=== PATIENT | female | born 1985 | race Caucasian/White ===

== ENCOUNTER → 2018-09-03 14:11 | Outpatient (CLI) | payer OTHER, SELFPAY ==
[2018-09-03 16:19] LABS: Alanine Aminotransferase 14 IU/L (9-52); Albumin Globulin Ratio 1.4 (1.0-2.8); Alkaline Phosphatase 74 U/L (38-126); Amylase 70 U/L (30-110); Aspartate Aminotransferase 15 IU/L (14-36); Bilirubin Total 0.3 mg/dL (0.2-1.3); Blood Urea Nitrogen 7 mg/dL (7-17); Calcium 9.4 mg/dL (8.4-10.2); Carbon Dioxide 26 mmol/L (22-32); Chloride 104 mmol/L (98-107); Estimated Glomerular Filt Rate > 60.0 mL/min (>60); Globulin 2.9 g/dL (1.7-4.1); Glucose 98 mg/dL (70-100); HEMOLYSIS < 15 (0-50); Lipase 149 U/L (23-300); Potassium 3.9 mmol/L (3.4-5.1); Sodium 139 mmol/L (137-145); Total Protein 6.9 g/dL (6.3-8.2)
== END ==
PROVIDERS: PCP Internal Medicine; Visit Provider Internal Medicine
DX: K58.9 Irritable bowel syndrome, unspecified (principal); R10.9 Unspecified abdominal pain; I10 Essential (primary) hypertension
CPT/HCPCS: 36415; 80053; 82150; 83690

== ENCOUNTER → 2018-09-12 08:18 | Outpatient (CLI) | payer OTHER, SELFPAY | PROVIDERS: PCP Internal Medicine; Visit Provider Physician Assistant | DX: N30.01 Acute cystitis with hematuria (principal) | CPT/HCPCS: 87077; 87086; 87186 ==

== ENCOUNTER → 2019-12-09 13:02 | Outpatient (CLI) | payer OTHER, SELFPAY ==
[2019-12-10 06:47] LABS: COVID19 Sendout Not Detected (Not Detect)
== END ==
PROVIDERS: PCP Internal Medicine; Visit Provider Physician Assistant
DX: Z01.812 Encounter for preprocedural laboratory examination (principal)
CPT/HCPCS: 87635

== ENCOUNTER 2019-12-12 09:05 | Day surgery (SDC) | payer OTHER, SELFPAY ==
[2019-12-11 15:14] VITALS: BMI 47.5
[2019-12-12] VITALS (13 sets, daily range): BP systolic 138–166; BP diastolic 83–104; PULSE 30–135; RESP 17–98; TEMP 36.1–36.9; O2SAT 92–98; BMI 47.5
[2019-12-12] MEDS: LACTATED RINGERS 1,000 ML 42 ML IV ×2 (09:29→10:59)
--- NOTE | 2019-12-12 09:41 | PM.PREOP ---
Pre-operative Note COVID-19 COVID-19 status: Negative Result date/Date tested (Pos, Neg/Pending): 12/09/19 Interval Note History & Physical reviewed/Exam performed by Physician: Yes Changes to H&P: No
--- NOTE | 2019-12-12 09:41 | PM.HP.1 ---
History of Present Illness History of Present Illness Date Patient Seen: 12/12/19 Time Patient Seen: 09:42 Chief complaint: T POSS A Narrative: 33-year-old female with a diagnosis of chronic tonsillitis and tonsil stones, throat pain and halitosis, persistent despite medical therapy, presents for tonsillectomy and possible adenoidectomy. Following discussion of the material risks benefits complications and alternatives, she elects to proceed. Patient History Medical History Acne vulgaris (Chronic 12/14/15) Body mass index (BMI) of 39.0 to 39.9 in adult (Chronic 06/13/16) Chronic tonsillitis (Acute) Generalized anxiety disorder (Chronic 06/13/16) Hearing loss (Acute) Irritable bowel syndrome (Chronic 01/04/16) Major depression (Chronic) Major depression in complete remission (Chronic 11/02/10) Migraine headache (Chronic 11/02/10) Tonsil stone (Acute) Surgical History History of third molar tooth extraction S/P cholecystectomy (Inactive ~01/2015) Family & Social History Family History Father Sleep apnea Mother Schizophrenia Sleep apnea Mental health problem Social History: household members none Tobacco & Substance use: Smoking Status Never smoker alcohol intake current alcohol intake frequency a few times a month Substance Use Type does not use Meds Home Medications and Allergies Home Medications Medication Instructions Recorded Confirmed Type naratriptan 2.5 mg tablet 2.5 mg PO .COMPLEX PRN #12 tab 11/13/17 08/05/19 Rx cholestyramine-aspartame 4 gram 4 gram PO BID #60 each 09/05/18 08/05/19 Rx oral powder for susp in a packet omeprazole 40 mg capsule,delayed See Rx Instructions .ROUTE 02/06/19 08/05/19 Rx release .COMPLEX #90 capsule bupropion HCl 150 mg 24 hr tablet, 150 mg PO QAM #30 tab 08/05/19 08/05/19 Rx extended release clonazepam 1 mg tablet 1 mg PO HS PRN #30 tab 08/05/19 08/05/19 Rx triamterene 37.5 1 tab PO QDAY #90 tab 09/26/19 12/11/19 Rx mg-hydrochlorothiazide 25 mg tablet desogestrel 0.15 mg-ethinyl See Rx Instructions .ROUTE 12/10/19 Rx estradiol 0.03 mg tablet .COMPLEX #28 tablet Allergies Allergy/AdvReac Type Severity Reaction Status Date / Time Fish Containing Products AdvReac Mild Headache,na Verified 08/05/19 11:47 usea Review of Systems Review of Systems Narrative: Throat irritation, pain, recurrent tonsil stones, halitosis, some snoring ROS: Yes All systems reviewed with the patient and are negative except as otherwise documented Exam Vital Signs (past 8 hours): - 12/12/19 09:30 Temperature 98.4 F Pulse Rate 105 H Respiratory Rate 17 Blood Pressure 154/91 H Pulse Oximetry 98 Oxygen Delivery Method Room Air Narrative Exam Narrative: Well-developed, obese female. 2+ tonsils. Heart regular rate and rhythm without murmur, lungs clear to auscultation bilaterally Assessment & Plan Assessment & Plan narrative: Assessment: Chronic tonsillitis, tonsil stones, throat pain, halitosis Plan: Following discussion of the material risks benefits complications and alternatives, the patient elected to proceed with tonsillectomy, possible adenoide[place] as [place] [facility] [place] [facility].
--- NOTE | 2019-12-12 09:44 | PM.OP.1 ---
Operative Date/Time/Diagnoses Date of procedure: 12/12/19 Time of procedure: 10:43 Pre-op diagnosis: Chronic tonsillitis, tonsil stones, throat pain, halitosis Post-op diagnosis: same Procedure & Clinicians Procedure: Tonsillectomy Same procedure as scheduled: Yes Indications: 33-year-old female with the above diagnoses incompletely managed with medical therapy presents for the above procedure. Following discussion of the material risks benefits complications and alternatives, she elected to proceed. Surgeon: Nicolas Mccabe Click Yes if Unassisted: Yes Anesthesia Type: General and Local Operative Notes Findings: Intact palate single uvula 2-3+ tonsils cryptic with stones, no adenoid tissue Closure Type: not applicable Specimen(s): none sent Estimated Blood Loss (mL): 10 Procedure in detail: Following identification and confirmation of consent the patient was brought to the operating room suite and placed in the supine position. General endotracheal anesthesia was administered. A head wrap, shoulder roll, and mouth gag were placed and a red rubber catheter was inserted through the nostril and out the mouth to retract the soft palate. There was no significant adenoid tissue. The left tonsil was retracted medially and suction electrocautery on a setting of 30 was used to dissect the tonsil in a subcapsular plane, followed by hemostasis with the same. This process was repeated on the right side with identical findings. The tonsillar fossae were superficially infiltrated bilaterally with a 1:1 mixture of 1% lidocaine 1 100,000 epinephrine and 0.25% Marcaine 1 to [id number] epinephrine. Mouth gag and rubber catheter were removed and the patient was extubated in the operating room and taken to the recovery room in stable condition without known complication. Complications: none Post-operative Condition: stable Disposition: same day surgery Plan for aftercare: DC home, alternate Tylenol and Advil every 3 hours, oxycodone for breakthrough pain, prescription given today.
--- NOTE | 2019-12-12 10:27 | SUR.OPER ---
Supine on padded OR bed, head on pillow, arm padded and tucked at side, legs uncrossed, safety belt at thigh, tape over blanket over lower legs .
[2019-12-12] MEDS: BUPIVACAINE 0.25% W/ EPI 30 ML VIAL INJ (10:30)
[2019-12-12] MEDS: LIDOCAINE 1% W/EPI 20 ML INJ (10:31)
[2019-12-12] MEDS: fentaNYL 100 MCG/2 ML INJ IV ×4 (10:56→11:47)
--- NOTE | 2019-12-12 11:59 | SUR.PHASEI ---
Dr. Guerrier aware of HR 113, patient may discharge per MD.
[2019-12-12] MEDS: OXYCODONE IR 5 MG TABLET PO (12:22)
== END 2019-12-12 12:40 | disposition home or self-care (01) ==
PROVIDERS: PCP Internal Medicine; Visit Provider Otolaryngology
PROC: (CPT 42826; principal; 2019-12-12 10:45)
DX: J35.01 Chronic tonsillitis (principal); J35.8 Other chronic diseases of tonsils and adenoids; R19.6 Halitosis; K21.9 Gastro-esophageal reflux disease without esophagitis; I10 Essential (primary) hypertension; F32.9 Major depressive disorder, single episode, unspecified; F41.9 Anxiety disorder, unspecified
CPT/HCPCS: 42826; J0330; J1100; J2250; J2405; J2704; J3010

== ENCOUNTER 2019-12-25 23:06 | Emergency (ER) | payer OTHER, SELFPAY ==
[2019-12-25 23:09] VITALS: BP 131/91; PULSE 117; RESP 20; TEMP 36.7; O2SAT 97; BMI 45.7
--- NOTE | 2019-12-25 23:49 | PC.NURSE ---
When brought to room, pt stated bleeding had slowed. Dr Bell to bedside for eval.
--- NOTE | 2019-12-25 23:50 | ED_ITS ---
HPI - GI Bleed General Chief complaint: GI Bleed Stated complaint: still bleeding from tonsillectomy 2 wks ago Time Seen by Provider: 12/25/19 23:50 Source: patient Mode of arrival: Ambulatory Limitations: no limitations History of Present Illness HPI Narrative: The patient underwent tonsillectomy 2 weeks ago. After going to sleep tonight she awoke with bleeding from her mouth. She spit out a substantial amount of blood. There was initially o'clock, the bright red blood. After arrival here, the bleeding has almost ceased. She has no tonsil pain, headache, no weakness or dizziness. She denies recent illness. She has had no headache, fever or cough. She has no bleeding issues. Related Data Previous Rx's Medication Instructions Recorded naratriptan 2.5 mg tablet 2.5 mg PO .COMPLEX PRN #12 tab 11/13/17 cholestyramine-aspartame 4 gram 4 gram PO BID #60 each 09/05/18 oral powder for susp in a packet omeprazole 40 mg capsule,delayed See Rx Instructions .ROUTE 02/06/19 release .COMPLEX #90 capsule bupropion HCl 150 mg 24 hr tablet, 150 mg PO QAM #30 tab 08/05/19 extended release clonazepam 1 mg tablet 1 mg PO HS PRN #30 tab 08/05/19 triamterene 37.5 1 tab PO QDAY #90 tab 09/26/19 mg-hydrochlorothiazide 25 mg tablet desogestrel 0.15 mg-ethinyl See Rx Instructions .ROUTE 12/10/19 estradiol 0.03 mg tablet .COMPLEX #28 tablet Allergies Allergy/AdvReac Type Severity Reaction Status Date / Time Fish Containing Products AdvReac Mild Headache,na Verified 08/05/19 11:47 usea Review of Systems Review of Systems ROS Unobtainable: All systems reviewed & are unremarkable except as noted in HPI and below Constitutional Constitutional: Denies chills, Denies fever(s) and Denies weakness ENT Comments: Tonsil bleeding is noted HPI. Cardiovascular Cardiovascular: Denies chest pain, Denies lightheadedness and Reports dyspnea Respiratory Respiratory: Reports cough and Reports dyspnea Gastrointestinal Gastrointestinal: Denies abdominal pain and Reports nausea Neurologic Neurologic: Denies weakness Patient History Medical History (Updated 12/26/19 @ 00:06 by Darrian Bell MD) Acne vulgaris (Chronic 12/14/15) Body mass index (BMI) of 39.0 to 39.9 in adult (Chronic 06/13/16) Chronic tonsillitis (Acute) Generalized anxiety disorder (Chronic 06/13/16) Hearing loss (Acute) Irritable bowel syndrome (Chronic 01/04/16) Major depression (Chronic) Major depression in complete remission (Chronic 11/02/10) Migraine headache (Chronic 11/02/10) Tonsil stone (Acute) Surgical History (Updated 12/25/19 @ 23:52 by Darrian Bell MD) History of third molar tooth extraction S/P cholecystectomy (Inactive ~01/2015) Status post tonsillectomy (Acute) Family History Father Sleep apnea Mother Schizophrenia Sleep apnea Mental health problem Social History household members: none Smoking Status: Never smoker alcohol intake: current Smoking Status: Never smoker alcohol intake frequency: a few times a month Substance Use Type: does not use Exam Initial Vital Signs Initial Vital Signs: Vital Signs Temperature 98.0 F 12/25/19 23:09 Pulse Rate 117 H 12/25/19 23:09 Respiratory Rate 20 12/25/19 23:09 Blood Pressure 131/91 H 12/25/19 23:09 Pulse Oximetry 97 12/25/19 23:09 Const General: cooperative and well developed Nutritional Appearance: well nourished [facility] Head: normocephalic and atraumatic Throat: other (There is a small clot in the left tonsillar fossa, no active bleeding. ) Neck Neck: No anterior neck swelling and No lymphadenopathy Resp Auscultation: clear to auscultation bilaterally Cardio Rate: regular rate Rhythm: regular rhythm Heart Sounds: no click, no gallops, no murmurs and no rubs Pulses: normal peripheral pulses Course Course Course Narrative: I was able suction majority of the clot from the left tonsillar fossa. There is no active bleeding. The patient feels well, she is advised follow-up with her ENT doctor. Vital Signs Vital signs: Vital Signs - 8 hr 12/25/19 23:09 Temperature 98.0 F Pulse Rate 117 H Respiratory Rate 20 Blood Pressure 131/91 H Pulse Oximetry 97 Discharge Plan Departure Patient Disposition: Home Clinical Impression: Haemorrhage, tonsil, postoperative Instructions: Tonsillectomy-Adult Activity Restrictions/Additional Instructions: Bleeding after tonsillectomy is not uncommon. Your bleeding is stable, your healing well. There is a small clot left in there. I would recommend saltwater gargles. Contact her ENT specialist, Dr. Jha, follow-up. Return here as needed. Prescriptions: No Action cholestyramine-aspartame 4 gram powder in packet 4 gram PO BID Qty: 60 RF: 5 omeprazole 40 mg capsule,delayed release(DR/EC) See Rx Instructions .ROUTE .COMPLEX Qty: 90 RF: 1 triamterene-hydrochlorothiazid 37.5-25 mg tablet 1 tab PO QDAY Qty: 90 RF: 3 desogestrel-ethinyl estradiol [Enskyce] 0.15-0.03 mg tablet See Rx Instructions .ROUTE .COMPLEX Qty: 28 RF: 12 bupropion HCl 150 mg tablet extended release 24 hr 150 mg PO QAM Qty: 30 RF: 6 clonazepam 1 mg tablet 1 mg PO HS PRN (Reason: insomnia) Qty: 30 RF: 0 naratriptan 2.5 mg tablet 2.5 mg PO .COMPLEX PRN (Reason: migraine headache) Qty: 12 RF: 11 Referrals: Nicolas Mccabe MD [Physician] - Honorio Nicolas MD [Primary Care Provider] -
--- NOTE | 2019-12-25 23:51 | PC.NURSE ---
Pt had a tonsillectomy 2 wks ago and reports that she woke up with a mouthful of blood. Since arriving to the ER the bleeding has stopped. MD assisted with suction and stated that the bleeding has stopped and pt is safe to go home. Pt reports no dizziness, syncope, n/v, or issues with her airway. Speaking clearly.
[2019-12-26 00:01] VITALS: BP 122/83; PULSE 103; RESP 20; O2SAT 96
== END 2019-12-26 00:10 | disposition home or self-care (01) ==
PROVIDERS: Emergency Provider Emergency Medicine; PCP Internal Medicine
DX: Z98.890 Other specified postprocedural states (principal); Z90.89 Acquired absence of other organs; J35.8 Other chronic diseases of tonsils and adenoids
CPT/HCPCS: 99281

== ENCOUNTER → 2020-12-08 16:11 | Outpatient (CLI) | payer OTHER, SELFPAY ==
[2020-12-08 17:20] LABS: Alanine Aminotransferase 12 IU/L (<35); Albumin 3.9 g/dL (3.5-5.0); Albumin Globulin Ratio 1.3 (1.0-2.8); Alkaline Phosphatase 64 U/L (38-126); Aspartate Aminotransferase 18 IU/L (14-36); BUN Creatinine Ratio 18.8 (6-22); Bilirubin Total 0.2 mg/dL (0.2-1.3); Blood Urea Nitrogen 13 mg/dL (7-17); Calcium 9.2 mg/dL (8.4-10.2); Carbon Dioxide 24 mmol/L (22-32); Chloride 105 mmol/L (98-107); Estimated Glomerular Filt Rate > 60.0 mL/min (>60); Globulin 2.9 g/dL (1.7-4.1); Glucose 118 mg/dL (70-100); HEMOLYSIS < 15 (0-50); Potassium 3.7 mmol/L (3.4-5.1); Sodium 136 mmol/L (137-145); Total Protein 6.8 g/dL (6.3-8.2)
[2020-12-08 17:51] LABS: TSH w/ Reflex to FT4 1.15 uIU/mL (0.47-4.68)
== END ==
PROVIDERS: PCP Internal Medicine; Referring Provider Internal Medicine; Visit Provider Internal Medicine
DX: F33.0 Major depressive disorder, recurrent, mild (principal); F41.1 Generalized anxiety disorder; G43.909 Migraine, unspecified, not intractable, without status migrainosus
CPT/HCPCS: 36415; 80053; 84443

== ENCOUNTER → 2021-02-09 14:17 | Outpatient (CLI) | payer OTHER, SELFPAY | PROVIDERS: PCP Internal Medicine; Referring Provider Nurse Practitioner Family; Visit Provider Nurse Practitioner Family | DX: N39.0 Urinary tract infection, site not specified (principal); R35.0 Frequency of micturition | CPT/HCPCS: 87077; 87086; 87186; 87210 ==

== ENCOUNTER → 2021-02-17 16:06 | Outpatient (CLI) | payer OTHER, SELFPAY ==
--- NOTE | 2021-02-17 | DI.MRI.S_ITS ---
PROCEDURE: MR BRAIN (IAC) WWO CON INDICATIONS: SENSORINEURAL HEARING LOSS TECHNIQUE: Noncontrast sagittal T1 spin echo, axial FLAIR, axial gradient echo, axial diffusion and ADC through the brain. Axial thin-slice 3D CISS, coronal TruFISP, axial T1 spin echo with fat saturation through the internal auditory canals. After the administration of contrast, thin slice axial and coronal T1 spin echo with fat saturation through the internal auditory canals, and axial T1 spin echo with fat saturation through the brain. COMPARISON: None. FINDINGS: Image quality: Excellent. Cerebellopontine angles: No cerebellopontine angle masses. Inner ear structures appear normally formed. No suspicious enhancement in the internal auditory canal or along the course of the 7th cranial nerve. CSF spaces: Ventricles are normal in size and shape. No extra-axial fluid collections. Basal cisterns are patent. Brain: No intracranial bleeds or mass effects. Rizzo-white matter interface is intact. No abnormal intracranial enhancement. Diffusion weighted images demonstrate no acute ischemic insults. Brainstem appears normal. Normal intravascular flow voids are present. Skull and face: Calvarial marrow signal is normal. Orbits appear normal. Sinuses: Sinuses and mastoids are clear. IMPRESSION: No significant abnormality is seen to explain the patient's presenting symptoms. Specifically, no masses or abnormal enhancement are seen within the cerebellopontine angle cisterns or within the internal auditory canals. Dictated by: Benji Salas M.D. on 02/17/2021 at 16:59 Approved by: Benji Salas M.D. on 02/17/2021 at 17:01
== END ==
PROVIDERS: PCP Internal Medicine; Referring Provider Otolaryngology; Visit Provider Otolaryngology
DX: H90.41 Sensorineural hearing loss, unilateral, right ear, with unrestricted hearing on the contralateral side (principal)
CPT/HCPCS: 70553; A9579

== ENCOUNTER → 2021-09-22 09:08 | Outpatient (CLI) | payer OTHER, SELFPAY | PROVIDERS: PCP Internal Medicine; Visit Provider Nurse Practitioner Family | DX: N39.0 Urinary tract infection, site not specified (principal) | CPT/HCPCS: 87086 ==

== ENCOUNTER → 2022-01-17 16:33 | Outpatient (CLI) | payer OTHER, SELFPAY | PROVIDERS: PCP Internal Medicine; Visit Provider Nurse Practitioner Family | DX: R30.0 Dysuria (principal); N89.8 Other specified noninflammatory disorders of vagina | CPT/HCPCS: 87077; 87086; 87186; 87210 ==

== ENCOUNTER → 2022-02-03 16:49 | Outpatient (CLI) | payer OTHER, SELFPAY | PROVIDERS: PCP Internal Medicine; Referring Provider Nurse Practitioner Family; Visit Provider Nurse Practitioner Family | DX: N39.0 Urinary tract infection, site not specified (principal); N89.8 Other specified noninflammatory disorders of vagina | CPT/HCPCS: 87086; 87210 ==

== ENCOUNTER → 2023-07-20 13:49 | Outpatient (CLI) | payer OTHER, SELFPAY | PROVIDERS: PCP Internal Medicine; Visit Provider Nurse Practitioner Family | DX: R30.0 Dysuria (principal); N89.8 Other specified noninflammatory disorders of vagina | CPT/HCPCS: 87086; 87210 ==

== ENCOUNTER → 2023-07-25 12:49 | Outpatient (CLI) | payer OTHER, SELFPAY | PROVIDERS: PCP Internal Medicine; Visit Provider Student in an Organized Health Care Education/Training Program | DX: N94.9 Unspecified condition associated with female genital organs and menstrual cycle (principal) | CPT/HCPCS: 87086; 87210 ==

== ENCOUNTER → 2023-08-15 10:10 | Outpatient (CLI) | payer OTHER, SELFPAY ==
[2023-08-15 11:04] LABS: Add Manual Diff / Slide Review NO; Basophils Absolute Auto 0 /uL (0-100); Basophils Percent Auto 0.5 % (0-2); Eosinophils Absolute Auto 0 /uL (0-450); Eosinophils Percent Auto 0.6 % (2-4); Hematocrit 41.8 % (36-46); Lymphocytes Absolute Auto 2200 /uL (1100-4500); Lymphocytes Percent Auto 27.9 % (25-40); Mean Corpuscular HGB Conc 33.4 % (30-36); Mean Corpuscular Hemoglobin 29.1 PG (26-34); Mean Corpuscular Volume 86.9 fL (80-100); Monocytes Absolute Auto 500 /uL (0-900); Monocytes Percent Auto 5.6 % (3-14); Neutrophils Absolute Auto 5300 /uL (1500-7000); Neutrophils Percent Auto 65.4 % (50-75); Platelet Count 355 X10^3/uL (150-400); Red Blood Cell Count 4.81 X10^6/uL (4.0-5.2); Red Cell Distribution Width 14.2 % (11.6-14.8); White Blood Cell Count 8.1 X10^3/uL (4.5-11.0)
[2023-08-15 12:44] LABS: Alanine Aminotransferase 16 IU/L (<35); Albumin 3.9 g/dL (3.5-5.0); Albumin Globulin Ratio 1.3 (1.0-2.8); Alkaline Phosphatase 75 U/L (38-126); Aspartate Aminotransferase 20 IU/L (14-36); BUN Creatinine Ratio 12.5 (6-22); Bilirubin Total 0.4 mg/dL (0.2-1.3); Blood Urea Nitrogen 9 mg/dL (7-17); Calcium 8.9 mg/dL (8.4-10.2); Carbon Dioxide 23 mmol/L (22-32); Chloride 108 mmol/L (98-107); Estimated Glomerular Filt Rate > 60 mL/min (>60); Glucose 83 mg/dL (70-100); HEMOLYSIS < 15 (0-50); Lipase 109 U/L (23-300); Potassium 4.7 mmol/L (3.4-5.1); Sodium 138 mmol/L (137-145); Total Protein 6.9 g/dL (6.3-8.2)
== END ==
PROVIDERS: PCP Internal Medicine; Referring Provider Internal Medicine; Visit Provider Internal Medicine
DX: R10.2 Pelvic and perineal pain (principal); R10.9 Unspecified abdominal pain
CPT/HCPCS: 36415; 80053; 83690; 85025

== ENCOUNTER → 2023-08-22 11:27 | Outpatient (CLI) | payer OTHER, SELFPAY ==
--- NOTE | 2023-08-22 11:29 | DI.CT.S_ITS ---
PROCEDURE: CT ABDOMEN PELVIS W CON INDICATIONS: pelvic pain TECHNIQUE: After the administration of intravenous contrast, axial sections acquired from the lung bases to the pubic symphysis. Coronal and sagittal reformats were performed. For radiation dose reduction, the following was used: automated exposure control, adjustment of mA and/or kV according to patient size. COMPARISON: None. FINDINGS: Image quality: Diagnostic. Lower Chest: No significant findings. ABDOMEN: Liver: No solid mass. Gallbladder: Surgically absent Biliary ducts: No biliary dilation. Pancreas: No ductal dilation. Spleen: Size is within normal limits. Adrenal Glands: No adrenal nodules. Kidneys and Ureters: No hydronephrosis. No solid mass. No complex renal cystic lesion which requires follow up. Stomach and Bowel: Normal colonic caliber, without significant wall thickening. Normal appendix. Peritoneum: No abnormal intraperitoneal fluid. No free air. Ventral Wall: There is a fat-containing umbilical hernia without acute inflammation. Abdominal Nodes: No retroperitoneal or mesenteric adenopathy by size criteria. Vessels: Aorta and inferior vena cava are normal in size. PELVIS: Pelvic Organs: Unremarkable. Bladder: No bladder wall thickening, accounting for underdistention. Pelvic Nodes: No enlarged lymph nodes. Miscellaneous: No inguinal hernias are seen. Bones: No aggressive osseous abnormality. Visualized osseous structures appear intact without acute fracture or focal destructive lesion. No acute compression fractures of the imaged spine. IMPRESSION: CT abdomen and pelvis without acute abnormalities. Status post cholecystectomy. Normal appendix. No suspicious mass or adenopathy. If there is still clinical concern for pelvic pathology. Further evaluation with pelvic ultrasound can be considered. Dictated by: Tunde Bautista M.D. on 08/22/2023 at 14:40 Approved by: Tunde Bautista M.D. on 08/22/2023 at 14:48
== END ==
PROVIDERS: PCP Internal Medicine; Referring Provider Internal Medicine; Visit Provider Internal Medicine
DX: K42.9 Umbilical hernia without obstruction or gangrene (principal); R10.2 Pelvic and perineal pain; R10.9 Unspecified abdominal pain; Z90.49 Acquired absence of other specified parts of digestive tract
CPT/HCPCS: 74177; Q9967

== ENCOUNTER → 2023-09-19 11:26 | Outpatient (CLI) | payer OTHER, SELFPAY | PROVIDERS: PCP Internal Medicine; Visit Provider Obstetrics & Gynecology | DX: R10.2 Pelvic and perineal pain (principal) | CPT/HCPCS: 87491; 87563; 87591 ==

== ENCOUNTER 2024-05-29 11:55 | Emergency (ER) | payer OTHER, SELFPAY ==
[2024-05-29] VITALS (9 sets, daily range): BP systolic 111–174; BP diastolic 65–109; PULSE 84–97; RESP 17–20; TEMP 36.6; O2SAT 96–98; BMI 54.1
--- NOTE | 2024-05-29 12:20 | EKG_ITS ---
[address] [address] Test Date: 2024-05-29 Pat Name: Masha Tolliver Department: Room: Gender: Female Patient Care: PEPE : 1985 Requested By: Order Number: [id number] Reading MD: Tito Mccullough Measurements Intervals [place] Rate: 89 P: 27 NH: 136 QRS: 12 QRSD: 86 T: 24 QT: 388 QTc: 472 Interpretive Statements Normal sinus rhythm Electronically Signed On 06-04-2024 20:07:49 PDT by Tito Mccullough
--- NOTE | 2024-05-29 14:07 | DI.RAD.S_ITS ---
PROCEDURE: XR CHEST 1V INDICATIONS: chest pain TECHNIQUE: One view of the chest was acquired. COMPARISON: None. FINDINGS: Surgical changes and devices: None. Lungs and pleura: Lungs are clear. No pleural effusions or pneumothorax. Mediastinum: Mediastinal contours appear normal. Heart size is normal. Bones and chest wall: No suspicious bony lesions. Overlying soft tissues appear unremarkable. IMPRESSION: No acute cardiopulmonary abnormality is seen. Dictated by: Abad Workman M.D. on 05/29/2024 at 14:50 Approved by: Abad Workman M.D. on 05/29/2024 at 14:50
[2024-05-29 14:44] LABS: Add Manual Diff / Slide Review NO; Basophils Absolute Auto 100 /uL (0-100); Basophils Percent Auto 1.1 % (0-2); Eosinophils Absolute Auto 100 /uL (0-450); Eosinophils Percent Auto 1.5 % (2-4); Hematocrit 45.2 % (36-46); Hemoglobin 15.1 g/dL (12.0-16.0); Lymphocytes Absolute Auto 2700 /uL (1100-4500); Mean Corpuscular HGB Conc 33.5 % (30-36); Mean Corpuscular Hemoglobin 29.2 PG (26-34); Mean Corpuscular Volume 87.2 fL (80-100); Monocytes Absolute Auto 700 /uL (0-900); Monocytes Percent Auto 8.2 % (3-14); Neutrophils Absolute Auto 5300 /uL (1500-7000); Neutrophils Percent Auto 59.2 % (50-75); Platelet Count 341 X10^3/uL (150-400); Red Blood Cell Count 5.18 X10^6/uL (4.0-5.2); Red Cell Distribution Width 14.2 % (11.6-14.8)
[2024-05-29 14:51] LABS: Prothrombin Time 11.8 SECONDS (9.4-12.5)
[2024-05-29 14:54] LABS: PTT Partial Thromboplastin Tim 36 SECONDS (25.1-36.5)
--- NOTE | 2024-05-29 14:54 | ED.EXTPRO ---
HPI - Extremity Problem General Chief complaint: Extremity Problem,Nontraumatic Stated complaint: Left upper rib pain, tingling in left fingers Time Seen by Provider: 05/29/24 14:44 History of Present Illness HPI Narrative: 38yo female complains of left lateral chest pain, tingling on left fingers since yesterday. No injury trauma new activities. No known CAD. No skin rashes. Also come pain left superior shoulder blade. No fevers or chills. No extremity weakness. No known history of DM, HTN, Hyperlipidemia, smoking, FHx early age CAD. Related Data Home Medications Medication Instructions Recorded Confirmed triamterene 37.5 1 tab PO DAILY 05/29/24 05/29/24 mg-hydrochlorothiazide 25 mg tablet Previous Rx's Medication Instructions Recorded buspirone 5 mg tablet 5 mg PO BID #60 tabs 09/12/22 desogestrel 0.15 mg-ethinyl 1 tab PO DAILY #84 tabs 03/08/23 estradiol 0.03 mg tablet (Enskyce) triamterene 37.5 1 tab PO QDAY #90 tabs 05/09/23 mg-hydrochlorothiazide 25 mg tablet omeprazole 40 mg capsule,delayed See Rx Instructions .Route 06/05/23 release .COMPLEX #90 caps bupropion HCl 150 mg 24 hr tablet, 150 mg PO QAM #90 tabs 06/20/23 extended release cholestyramine-aspartame 4 gram 4 g PO BID #60 ea 08/15/23 oral powder for susp in a packet norethindrone (contraceptive) 0.35 0.35 mg PO DAILY #84 tabs 12/13/23 mg tablet (Jencycla) naratriptan 2.5 mg tablet 2.5 mg PO .COMPLEX PRN migraine 03/07/24 headache #12 tabs clonazepam 1 mg tablet 1 mg PO BEDTIME PRN insomnia #30 05/17/24 tabs methocarbamol 500 mg tablet 500 mg PO TID 7 days #21 tabs 05/29/24 Allergies Allergy/AdvReac Type Severity Reaction Status Date / Time Fish Containing Products AdvReac Mild Headache,na Verified 05/29/24 12:12 usea Patient History Medical History (Updated 05/29/24 @ 15:35 by Bal Stout MD) Colicky RLQ abdominal pain Morbid obesity Essential hypertension Hearing loss Tonsil stone Chronic tonsillitis Major depression Generalized anxiety disorder (06/13/16) Body mass index (BMI) of 39.0 to 39.9 in adult (06/13/16) Irritable bowel syndrome (01/04/16) Acne vulgaris (12/14/15) Migraine headache (11/02/10) Major depression in complete remission (11/02/10) Surgical History Status post tonsillectomy S/P cholecystectomy (~01/2015) History of third molar tooth extraction Family History Father Sleep apnea Mother Schizophrenia Sleep apnea Mental health problem Social History household members: none Smoking Status: Never smoker alcohol intake: current Smoking Status: Never smoker alcohol intake frequency: a few times a month Exam Narrative Exam Narrative: GENERAL: Well-developed patient, in mild distress. HEAD: Atraumatic. Normocephalic. EYES: Pupils equal round and reactive. Extraocular motions intact. No scleral icterus. No injection or drainage. ENT: Nose without bleeding, purulent drainage. Throat without erythema, tonsillar hypertrophy or exudate. Airway patent. NECK: Trachea midline. Non tender CARDIOVASCULAR: Regular rate and rhythm without murmurs, gallops, or rubs. RESPIRATORY: Clear to auscultation. Breath sounds equal bilaterally. No wheezes, rales, or rhonchi. Tenderness left lateral chest wall, no rash/vesicles, no crepitance, no redness or bruising. Some tenderness superior left trapezius and superior left rhomboid. No posterior superior skin changes. GASTROINTESTINAL: Abdomen soft, non-tender, nondistended. EXTREMITIES: No edema or joint tenderness. BACK: Nontender without deformity or crepitance. No flank tenderness. NEURO: AOx3. Motor functions grossly nonfocal SKIN: No rash or erythema of visible areas Initial Vital Signs Initial Vital Signs: Vital Signs Temperature 98 F 05/29/24 12:08 Pulse Rate 97 H 05/29/24 12:08 Respiratory Rate 17 05/29/24 12:08 Blood Pressure 174/109 H 05/29/24 12:08 Pulse Oximetry 97 05/29/24 12:08 Oxygen Delivery Method Room Air 05/29/24 12:08 Course Orders Ordered: Discontinued Medications Aspirin (Aspirin 81 Mg Chew Tab) 324 mg PO NOW ONE Stop: 05/29/24 14:08 Last Admin: 05/29/24 15:04 Dose: Not Given Documented By: SB Ketorolac Tromethamine (Ketorolac 30 Mg/Ml Vial) 15 mg IV NOW ONE Stop: 05/29/24 14:45 Last Admin: 05/29/24 15:03 Dose: 15 mg Documented By: SB Vital Signs Vital signs: Vital Signs - 8 hr 05/29/24 12:30 05/29/24 13:01 05/29/24 13:31 Pulse Rate 97 H 91 H 96 H Respiratory Rate Blood Pressure 144/84 H 137/69 169/80 H Pulse Oximetry 97 97 98 Oxygen Delivery Method 05/29/24 14:30 05/29/24 15:01 05/29/24 15:31 Pulse Rate 96 H 92 H 86 Respiratory Rate 17 20 19 Blood Pressure 145/83 H 154/80 H 156/79 H Pulse Oximetry 96 96 Oxygen Delivery Method Room Air 05/29/24 15:53 Pulse Rate 84 Respiratory Rate 18 Blood Pressure 111/65 Pulse Oximetry 97 Oxygen Delivery Method Room Air MDM - Extremity (Nontraumatic) Lab Data 05/29/24 14:30 05/29/24 14:30 Labs: Lab Results 05/29/24 Range/Units 14:30 WBC 9.0 (4.5-11.0) X10^3/uL RBC 5.18 (4.0-5.2) X10^6/uL Hgb 15.1 (12.0-16.0) g/dL Hct 45.2 (36-46) % MCV 87.2 (80-100) fL MCH 29.2 (26-34) PG MCHC 33.5 (30-36) % RDW 14.2 (11.6-14.8) % Plt Count 341 (150-400) X10^3/uL Neut % (Auto) 59.2 (50-75) % Lymph % (Auto) 30.0 (25-40) % Tompkins % (Auto) 8.2 (3-14) % Eos % (Auto) 1.5 L (2-4) % Baso % (Auto) 1.1 (0-2) % Neut # (Auto) 5300 (4940-2560) /uL Lymph # (Auto) 2700 (9944-4666) /uL Tompkins # (Auto) 700 (0-900) /uL Eos # (Auto) 100 (0-450) /uL Baso # (Auto) 100 (0-100) /uL PT 11.8 (9.4-12.5) SECONDS INR 1.0 (0.9-1.3) APTT 36 (25.1-36.5) SECONDS Sodium 139 (137-145) mmol/L Potassium 3.7 (3.4-5.1) mmol/L Chloride 103 (98-107) mmol/L Carbon Dioxide 24 (22-32) mmol/L BUN 12 (7-17) mg/dL Creatinine 0.81 (0.52-1.04) mg/dL Estimated GFR > 60 (>60) mL/min BUN/Creatinine Ratio 14.8 (6-22) Glucose 96 (70-100) mg/dL Calcium 9.5 (8.4-10.2) mg/dL Magnesium 2.1 (1.6-2.3) mg/dL Total Bilirubin 0.6 (0.2-1.3) mg/dL AST 60 H (14-36) IU/L ALT 91 H (<35) IU/L Alkaline Phosphatase 107 (38-126) U/L Total Creatine Kinase 70 (30-135) U/L Troponin I < 0.012 (0.01-0.034) ng/mL NT-Pro-B Natriuret Pep < 20 (<125) pg/mL Total Protein 8.4 H (6.3-8.2) g/dL Albumin 4.9 (3.5-5.0) g/dL Globulin 3.5 (1.7-4.1) g/dL Albumin/Globulin Ratio 1.4 (1.0-2.8) Lipase 132 (23-300) U/L Imaging Data Chest x-ray: Radiologist's Impression: Close Chest X-Ray (Signed) Abad Workman - 05/29/[address] [address] XRay Report Signed Patient: Masha Her MR#: [id number] : 1985 Acct:[id number] Age/Sex: 38 / F Date of Service: 05/29/24 Loc: ED Accession Number: [id number] Procedure: XR chest 1V Ordering Provider: Bal Stout MD PROCEDURE: XR CHEST 1V INDICATIONS: chest pain TECHNIQUE: One view of the chest was acquired. COMPARISON: None. FINDINGS: Surgical changes and devices: None. Lungs and pleura: Lungs are clear. No pleural effusions or pneumothorax. Mediastinum: Mediastinal contours appear normal. Heart size is normal. Bones and chest wall: No suspicious bony lesions. Overlying soft tissues appear unremarkable. IMPRESSION: No acute cardiopulmonary abnormality is seen. Dictated by: Abad Workman M.D. on 05/29/2024 at 14:50 Approved by: Abad Workman M.D. on 05/29/2024 at 14:50 ECG Data Attestation EKG: I personally reviewed and interpreted this ECG as follows: Interpretation: Normal sinus rhythm with rate of 89, no obvious ST segment elevation or depression changes. SC 136, QRS 86, QTC 472. MDM Narrative Medical decision making narrative: 38yo female with left hand tingling, left chest and shoulder pain. No CAD risk factors. Screening EKG and chest x-ray sent from triage unremarkable, troponin negative. On examination patient has tenderness left lateral chest that reproduces her lateral chest discomfort, also has some tenderness in the left superior trapezius and superior rhomboid musculature. Trial of NSAID and muscle relaxant. Prescription sent for Robaxin to her pharmacy. She can take [id number] ibuprofen if needed. Recheck advised early next week if not improving with her PCP. Return precautions to the emergency department discussed. Discharge Plan Departure Patient Disposition: Home Clinical Impression: Spasm of left trapezius muscle, Strain of left rhomboid muscle, Chest wall pain Activity Restrictions/Additional Instructions: Left arm tingling, also left lateral chest discomfort with tenderness on examination, no recent injury or new activities, also some tenderness on superior left trapezius muscle and with the superior left rhomboid musculature. Sometimes he has muscles can spasm and pull the scapula forward and push on the nerves that go to your left arm in the brachial plexus and cause tingling. Triage concern about a cardiac event. EKG and blood testing not suggestive of heart attack at this time. You were low risk for cardiac event by history and lack of risk factors. Chest x-ray study during the evaluation was also unremarkable. Consider anti-inflammatory medication such as [id number] ibuprofen. Consider trial of muscle relaxant such as Robaxin/methocarbamol. You drove herself, hold muscle relaxant for discharge. Muscle relaxant prescription sent to your pharmacy, take as directed for the next couple of days to see if it seems to help your symptoms. Further workup as an outpatient for now. Recheck early next week if symptoms are persisting with your regular doctor. Return to this/nearest emergency department for any change worsening symptoms or any concerns prior. Prescriptions: New methocarbamol 500 mg tablet 500 mg PO TID 7 Days Qty: 21 0RF No Action buspirone 5 mg tablet 5 mg PO BID Qty: 60 4RF desogestrel-ethinyl estradiol [Enskyce] 0.15-0.03 mg tablet 1 tab PO DAILY Qty: 84 3RF triamterene-hydrochlorothiazid 37.5-25 mg tablet 1 tab PO QDAY Qty: 90 3RF omeprazole 40 mg capsule,delayed release(DR/EC) See Rx Instructions .ROUTE .COMPLEX Qty: 90 3RF Dose Instruction: take 1 capsule by mouth once daily Rx Instructions: take 1 capsule by mouth once daily bupropion HCl 150 mg tablet extended release 24 hr 150 mg PO QAM Qty: 90 3RF norethindrone (contraceptive) [Jencycla] 0.35 mg tablet 0.35 mg PO DAILY Qty: 84 3RF naratriptan 2.5 mg tablet 2.5 mg PO .COMPLEX PRN (Reason: migraine headache) Qty: 12 11RF Rx Instructions: 2.5 mg PO 1 at onset, may repeat after 2 hours PRN; clonazepam 1 mg tablet 1 mg PO BEDTIME PRN (Reason: insomnia) Qty: 30 0RF cholestyramine-aspartame 4 gram powder in packet 4 g PO BID Qty: 60 5RF Rx Instructions: administer w/meal; avoid other meds within 1hr before or 4-6hr after dose triamterene-hydrochlorothiazid 37.5-25 mg tablet 1 tab PO DAILY Referrals: Honorio Nicolas MD [Primary Care Provider] - Stand Alone Forms: Patient Portal/API/Survey
[2024-05-29 14:56] LABS: Alanine Aminotransferase 91 IU/L (<35); Albumin 4.9 g/dL (3.5-5.0); Albumin Globulin Ratio 1.4 (1.0-2.8); Alkaline Phosphatase 107 U/L (38-126); Aspartate Aminotransferase 60 IU/L (14-36); BUN Creatinine Ratio 14.8 (6-22); Bilirubin Total 0.6 mg/dL (0.2-1.3); Blood Urea Nitrogen 12 mg/dL (7-17); Calcium 9.5 mg/dL (8.4-10.2); Carbon Dioxide 24 mmol/L (22-32); Chloride 103 mmol/L (98-107); Creatine Kinase 70 U/L (30-135); Estimated Glomerular Filt Rate > 60 mL/min (>60); Globulin 3.5 g/dL (1.7-4.1); Glucose 96 mg/dL (70-100); HEMOLYSIS < 15 (0-50); Lipase 132 U/L (23-300); Magnesium 2.1 mg/dL (1.6-2.3); Potassium 3.7 mmol/L (3.4-5.1); Sodium 139 mmol/L (137-145); Total Protein 8.4 g/dL (6.3-8.2)
[2024-05-29] MEDS: KETOROLAC 30 MG/ML VIAL 15 MG IV (15:03)
[2024-05-29 15:08] LABS: NT-proBNP (BNP-Adult 18+) < 20 pg/mL (<125); Troponin I < 0.012 ng/mL (0.01-0.034)
== END 2024-05-29 15:57 | disposition home or self-care (01) ==
PROVIDERS: Emergency Provider Emergency Medicine; PCP Internal Medicine
DX: S29.012A Strain of muscle and tendon of back wall of thorax, initial encounter (principal); M62.830 Muscle spasm of back; R07.89 Other chest pain
CPT/HCPCS: 36415; 71045; 80053; 82550; 83690; 83735; 83880; 84484; 85025; 85610; 85730; 93005; 93041; 96374; 99284; J1885